=== PATIENT | male | born 1985 | race Caucasian/White ===

== ENCOUNTER 2018-08-20 16:25 | Inpatient (IN) ==
[2018-08-20 17:28] LABS: Basophils % 0.1 %; Eosinophils # 0.3 K/mcL (0.0-0.6); Hematocrit 34.9 % (37.5-50.1); Immature Granulocytes % 2.4 % (0-4); Lymphocytes # 1.1 K/mcL (0.6-4.6); Lymphocytes % 7.8 %; Mean Corpuscular HGB Conc 34.4 g/dL (31.6-35.5); Mean Corpuscular Volume 87.3 fL (83.0-100.0); Mean Platelet Volume 11.6 fL (9.4-12.4); Monocytes # 0.6 K/mcL (0.0-1.3); Neutrophils # 11.9 K/mcL (1.6-8.9); Platelet Count 109 K/mcL (140-400); Red Cell Distribution Width 12.4 % (11.5-14.5); Segmented Neutrophils % 83.7 %
[2018-08-20 17:47] LABS: BUN/Creatinine Ratio 17 (6-26); Blood Urea Nitrogen 16 mg/dL (6-20); Calcium 9.1 mg/dL (8.6-10.3); Carbon Dioxide 28 mEq/L (23-29); Chloride 102 mEq/L (98-107); Glucose 104 mg/dL (70-105); Osmolality,Calculated 279 (280-300); Potassium 3.6 mEq/L (3.5-5.1); Sodium 134 mEq/L (136-145); eGFR For Non-African Americans > 60 (> 60)
[2018-08-20] MEDS ORDERED: Isovue-370 500 ML INFUS..BTL IV ONE (21:05)
[2018-08-20] MEDS ORDERED: cefTRIAXone 1,000 MG in Water for inj. (sterile) 20 ML 10 ML IVP ONE (21:06)
--- NOTE | 2018-08-20 21:11 | Emergency Department Note ---
Disposition Clinical Impression: Left arm cellulitis Disposition: Admitted As Inpatient Condition: Good Referrals: Susi Levine MD [Primary Care Provider] - Forms: ED Satisfaction Letter Time of Disposition: 23:14 Skin/Abscess/FB HPI Chief complaint: ED Skin/Abscess/Foreign Body Stated complaint: Cellulitis left arm 2X Size seen08/18/18 Time Seen by Provider: 08/20/18 20:58 Source: patient Limitations: no limitations Nursing Notes Reviewed: Yes Vital Signs Reviewed: Yes HPI Narrative: 32-year-old male otherwise healthy presents to the emergency department with left arm cellulitis. Patient was seen and evaluated at 4 hours and 30 minutes into his weight. Patient was recently evaluated 2 days ago for similar symptoms discharged home on doxycycline and clindamycin. He was cut by barbed wire. His redness was outlined and it has significantly spread outside the marker demarcation. He reports significant swelling and redness outside of this line. He denies any fevers. Denies any nausea or vomiting. He has been experiencing some headache myalgias. No significant numbness or tingling to the area. No new injuries. He has 3 superficial lacerations to the left upper arm with near circumferential redness. Tetanus was updated on his prior visit. Patient will require admission IV antibiotics and additional imaging to evaluate for possible abscess. He is in agreement with this plan. Pt Subjective Complaint: rash Previous Rx's Medication Instructions Recorded Clindamycin [Cleocin] 150 mg PO BID 7 Days #14 capsule 08/18/18 Doxycycline 100 mg PO BID 7 Days #14 capsule 08/18/18 Ondansetron HCl [Zofran] 4 mg PO Q8HR PRN 7 Days #21 tab 08/18/18 Allergies Allergy/AdvReac Type Severity Reaction Status Date / Time No Known Allergies Allergy Verified 08/18/18 10:32 All systems ED: reviewed and negative except as stated. Review of Systems: As Per HPI Constitutional: Denies: fever, chills ENT ED: Reports: ear pain. Denies: congestion Cardiovascular: Denies: chest pain Respiratory: Denies: cough, dyspnea Gastrointestinal: Denies: abdominal pain, nausea, vomiting Genitourinary: Denies: dysuria Musculoskeletal: Reports: myalgia. Denies: back pain, neck pain Integumentary: Reports: rash Neurological: Reports: headache. Denies: weakness, numbness, paresthesias Past Medical History - Past Medical History Attestation: Yes The following information was validated with the patient. Source: patient Medical history: Reports: no medical history Psychiatric history: Reports: no psych history - Social History Smoking Status: Current some day smoker Smokeless Tobacco Status: No Alcohol use: Reports: none Drug use: Reports: marijuana Physical Exam - General Limitations: no limitations General appearance: alert - Head Head exam: atraumatic, normocephalic, normal inspection - Eye Eye exam: Present: normal appearance, PERRL, EOMI - ENT ENT exam: normal exam, normal oropharynx, mucous membranes moist - Neck Neck exam: Present: normal inspection, full ROM, trachea midline - Chest Chest inspection: Present: normal inspection, symmetric chest wall rise - Respiratory Respiratory exam: Present: normal lung sounds bilaterally - Cardiovascular Cardiovascular exam: Present: regular rate, normal rhythm, normal heart sounds - Expanded Cardiovascular Exam Peripheral pulses: 2+: radial (R), radial (L) - Abdominal Exam Abdominal exam: Present: soft, Non-Tender. Absent: tenderness, distention, guarding, rebound, rigidity - Expanded Upper Extremity Exam Shoulder exam: Present: full ROM, erythema Arm exam: Present: full ROM, erythema Elbow exam: Present: erythema. Absent: full ROM (Some discomfort to the left elbow) Forearm/Wrist exam: Present: full ROM, other (Some swelling but compartment is not tight). Absent: tenderness Hand exam: Present: normal inspection, full ROM Neuromotor exam: Normal: wrist extension, thumb opposition, thumb IP flexion, thumb adduction, fingers 2-5 abduction Neurosensory exam: Normal: radial nerve, ulnar nerve, median nerve Vascular exam: Normal: capillary refill, radial pulse - Neurological Exam Neurological exam: Present: alert, oriented X3 - Psychiatric Psychiatric exam: Present: normal affect, normal mood - Skin Skin exam: Present: warm, erythema. Absent: rash - Expanded Skin Exam Type of lesion: Present: rash Distribution: LUE Description: Present: erythematous, swelling 1 - Erythema 2 - Erythema 3 - Erythema 4 - 3 superficial lacerations Course Course Narrative: Patient presents with worsening cellulitis after outpatient therapy. He denies of any systemic symptoms. Labs or order prior to my evaluation with a leukocytosis that is improved from prior. Lactate 0.7. ESR in CRP mildly dora vated. CT scan showed cellulitis without abscess or gas formation. He remains neurovascularly intact. Patient will be admitted for IV antibiotics vancomycin and ceftriaxone after failing outpatient therapy. - Consultations Consultation #1: Spoke with on-call hospitalist homero Ortiz to admit for left arm cellulitis. No further orders at this time Time: 23:12 Vital Signs Temperature 98.5 F 08/20/18 16:38 Pulse Rate 68 08/20/18 16:38 Respiratory Rate 16 08/20/18 16:38 Blood Pressure 116/74 08/20/18 16:38 O2 Sat by Pulse Oximetry 99 08/20/18 16:38 Temperature 98.5 F 08/20/18 21:02 Pulse Rate 68 08/20/18 21:02 Respiratory Rate 16 08/20/18 21:02 Blood Pressure 116/74 08/20/18 21:02 O2 Sat by Pulse Oximetry 99 08/20/18 21:02 Oxygen Delivery Oxygen Delivery Room Air Skin/Abscess/Foreign Body - MDM Narrative Medical decision making narrative: Patient was discussed with my attending physician who agrees with ED management and final disposition. They independently evaluated the patient. Please refer to their attestation to this encounter for additional information. This note was generated by [employer] voice recognition software and as a result grammatical or spelling errors may occur using this program. - Medical Records Medical records reviewed: Yes I reviewed the patient's medical records. - Lab Data Lab results reviewed: Yes I reviewed the patient's lab results. Result diagrams: 08/20/18 17:06 08/20/18 17:06 Lab Results 08/20/18 08/20/18 08/20/18 Range/Units 17:06 17:06 21:35 WBC 14.2 H (4.3-11.1) K/mcL RBC 4.00 L (4.19-5.50) M/mcL Hgb 12.0 L D (12.9-16.9) g/dL Hct 34.9 L (37.5-50.1) % MCV 87.3 (83.0-100.0) fL MCH 30.0 (28.0-33.3) pg MCHC 34.4 (31.6-35.5) g/dL RDW 12.4 (11.5-14.5) % Plt Count 109 L (140-400) K/mcL MPV 11.6 (9.4-12.4) fL Immature Gran % 2.4 (0-4) % Seg Neutrophils % 83.7 % Lymphocytes % 7.8 % Monocytes % 4.0 % Eosinophils % 2.0 % Basophils % 0.1 % Neutrophils # 11.9 H (1.6-8.9) K/mcL Lymphocytes # 1.1 (0.6-4.6) K/mcL Monocytes # 0.6 (0.0-1.3) K/mcL Eosinophils # 0.3 (0.0-0.6) K/mcL Basophils # 0.0 (0.0-0.2) K/mcL ESR (0-10) mm/hr Sodium 134 L (136-145) mEq/L Potassium 3.6 (3.5-5.1) mEq/L Chloride 102 (98-107) mEq/L Carbon Dioxide 28 (23-29) mEq/L BUN 16 (6-20) mg/dL Creatinine 0.96 (0.70-1.30) mg/dL Est GFR ( Amer) > 60 (> 60) Est GFR (Non-Af Amer) > 60 (> 60) BUN/Creatinine Ratio 17 (6-26) Glucose 104 (70-105) mg/dL Calculated Osmolality 279 L (280-300) Lactic Acid 0.7 (0.5-2.2) mmol/L Calcium 9.1 (8.6-10.3) mg/dL C-Reactive Protein (Less than 10) mg/L 08/20/18 08/20/18 Range/Units 21:35 21:35 WBC (4.3-11.1) K/mcL RBC (4.19-5.50) M/mcL Hgb (12.9-16.9) g/dL Hct (37.5-50.1) % MCV (83.0-100.0) fL MCH (28.0-33.3) pg MCHC (31.6-35.5) g/dL RDW (11.5-14.5) % Plt Count (140-400) K/mcL MPV (9.4-12.4) fL Immature Gran % (0-4) % Seg Neutrophils % % Lymphocytes % % Monocytes % % Eosinophils % % Basophils % % Neutrophils # (1.6-8.9) K/mcL Lymphocytes # (0.6-4.6) K/mcL Monocytes # (0.0-1.3) K/mcL Eosinophils # (0.0-0.6) K/mcL Basophils # (0.0-0.2) K/mcL ESR 65 H (0-10) mm/hr Sodium (136-145) mEq/L Potassium (3.5-5.1) mEq/L Chloride (98-107) mEq/L Carbon Dioxide (23-29) mEq/L BUN (6-20) mg/dL Creatinine (0.70-1.30) mg/dL Est GFR ( Amer) (> 60) Est GFR (Non-Af Amer) (> 60) BUN/Creatinine Ratio (6-26) Glucose (70-105) mg/dL Calculated Osmolality (280-300) Lactic Acid (0.5-2.2) mmol/L Calcium (8.6-10.3) mg/dL C-Reactive Protein 201 H (Less than 10) mg/L - Radiology Data Radiology results reviewed: Yes I reviewed the patient's radiology results. Upper Extremity CT 08/20/18 21:05 IMPRESSION: Findings most compatible with cellulitis. No focal abscess. No soft tissue gas. No CT evidence of osteomyelitis. D/ / Gilberto Espitia MD / Gilberto Espitia MD Interpreting Provider: Gilberto Espitia MD
[2018-08-20] MEDS ORDERED: 0.9 % Sodium Chloride 1,000 ML IVC ONE (21:12)
[2018-08-20] MEDS ORDERED: Ketorolac 15 MG/ML VIAL IVP ONE (22:19)
[2018-08-20] MEDS ORDERED: *HR* FentaNYL (PF) 100 MCG/2 ML VIAL IVP ONE (22:19)
--- NOTE | 2018-08-20 22:50 | Emergency Department Note ---
Disposition Clinical Impression: Left arm cellulitis Disposition: Admitted As Inpatient Condition: Good Referrals: Susi Levine MD [Primary Care Provider] - Forms: ED Satisfaction Letter General Adult HPI - General Chief complaint: ED Skin/Abscess/Foreign Body Stated complaint: Cellulitis left arm 2X Size seen08/18/18 Time Seen by Provider: 08/20/18 20:58 Source: patient Limitations: no limitations Nursing Notes Reviewed: Yes Vital Signs Reviewed: Yes - History of Present Illness Pain Scale: 5 - Related Data Previous Rx's Medication Instructions Recorded Clindamycin [Cleocin] 150 mg PO BID 7 Days #14 capsule 08/18/18 Doxycycline 100 mg PO BID 7 Days #14 capsule 08/18/18 Ondansetron HCl [Zofran] 4 mg PO Q8HR PRN 7 Days #21 tab 08/18/18 Allergies Allergy/AdvReac Type Severity Reaction Status Date / Time No Known Allergies Allergy Verified 08/18/18 10:32 Constitutional: Denies: fever, chills ENT ED: Reports: ear pain. Denies: congestion Cardiovascular: Denies: chest pain Respiratory: Denies: cough, dyspnea Gastrointestinal: Denies: abdominal pain, nausea, vomiting Genitourinary: Denies: dysuria Musculoskeletal: Reports: myalgia. Denies: back pain, neck pain Integumentary: Reports: rash Neurological: Reports: headache. Denies: weakness, numbness, paresthesias Past Medical History - Past Medical History Medical history: Reports: no medical history Psychiatric history: Reports: no psych history - Social History Smoking Status: Current some day smoker Smokeless Tobacco Status: No Alcohol use: Reports: none Drug use: Reports: marijuana Physical Exam - General Limitations: no limitations General appearance: alert Course Vital Signs Temperature 98.5 F 08/20/18 16:38 Pulse Rate 68 08/20/18 16:38 Respiratory Rate 16 08/20/18 16:38 Blood Pressure 116/74 08/20/18 16:38 O2 Sat by Pulse Oximetry 99 08/20/18 16:38 Temperature 98.5 F 08/20/18 21:02 Pulse Rate 68 08/20/18 21:02 Respiratory Rate 16 08/20/18 21:02 Blood Pressure 116/74 08/20/18 21:02 O2 Sat by Pulse Oximetry 99 08/20/18 21:02 Oxygen Delivery Oxygen Delivery Room Air Medical Decision Making - Medical Records Medical records reviewed: Yes I reviewed the patient's medical records. - Lab Data Lab results reviewed: Yes I reviewed the patient's lab results. Result diagrams: 08/20/18 17:06 08/20/18 17:06 Lab Results 08/20/18 08/20/18 08/20/18 Range/Units 17:06 17:06 21:35 WBC 14.2 H (4.3-11.1) K/mcL RBC 4.00 L (4.19-5.50) M/mcL Hgb 12.0 L D (12.9-16.9) g/dL Hct 34.9 L (37.5-50.1) % MCV 87.3 (83.0-100.0) fL MCH 30.0 (28.0-33.3) pg MCHC 34.4 (31.6-35.5) g/dL RDW 12.4 (11.5-14.5) % Plt Count 109 L (140-400) K/mcL MPV 11.6 (9.4-12.4) fL Immature Gran % 2.4 (0-4) % Seg Neutrophils % 83.7 % Lymphocytes % 7.8 % Monocytes % 4.0 % Eosinophils % 2.0 % Basophils % 0.1 % Neutrophils # 11.9 H (1.6-8.9) K/mcL Lymphocytes # 1.1 (0.6-4.6) K/mcL Monocytes # 0.6 (0.0-1.3) K/mcL Eosinophils # 0.3 (0.0-0.6) K/mcL Basophils # 0.0 (0.0-0.2) K/mcL ESR (0-10) mm/hr Sodium 134 L (136-145) mEq/L Potassium 3.6 (3.5-5.1) mEq/L Chloride 102 (98-107) mEq/L Carbon Dioxide 28 (23-29) mEq/L BUN 16 (6-20) mg/dL Creatinine 0.96 (0.70-1.30) mg/dL Est GFR ( Amer) > 60 (> 60) Est GFR (Non-Af Amer) > 60 (> 60) BUN/Creatinine Ratio 17 (6-26) Glucose 104 (70-105) mg/dL Calculated Osmolality 279 L (280-300) Lactic Acid 0.7 (0.5-2.2) mmol/L Calcium 9.1 (8.6-10.3) mg/dL C-Reactive Protein (Less than 10) mg/L 08/20/18 08/20/18 Range/Units 21:35 21:35 WBC (4.3-11.1) K/mcL RBC (4.19-5.50) M/mcL Hgb (12.9-16.9) g/dL Hct (37.5-50.1) % MCV (83.0-100.0) fL MCH (28.0-33.3) pg MCHC (31.6-35.5) g/dL RDW (11.5-14.5) % Plt Count (140-400) K/mcL MPV (9.4-12.4) fL Immature Gran % (0-4) % Seg Neutrophils % % Lymphocytes % % Monocytes % % Eosinophils % % Basophils % % Neutrophils # (1.6-8.9) K/mcL Lymphocytes # (0.6-4.6) K/mcL Monocytes # (0.0-1.3) K/mcL Eosinophils # (0.0-0.6) K/mcL Basophils # (0.0-0.2) K/mcL ESR 65 H (0-10) mm/hr Sodium (136-145) mEq/L Potassium (3.5-5.1) mEq/L Chloride (98-107) mEq/L Carbon Dioxide (23-29) mEq/L BUN (6-20) mg/dL Creatinine (0.70-1.30) mg/dL Est GFR ( Amer) (> 60) Est GFR (Non-Af Amer) (> 60) BUN/Creatinine Ratio (6-26) Glucose (70-105) mg/dL Calculated Osmolality (280-300) Lactic Acid (0.5-2.2) mmol/L Calcium (8.6-10.3) mg/dL C-Reactive Protein 201 H (Less than 10) mg/L - Radiology Data Radiology results reviewed: Yes I reviewed the patient's radiology results. Upper Extremity CT 08/20/18 21:05 IMPRESSION: Findings most compatible with cellulitis. No focal abscess. No soft tissue gas. No CT evidence of osteomyelitis. D/ / Gilberto Espitia MD / Gilberto Espitia MD Interpreting Provider: Gilberto Espitia MD Critical Care Time Critical Care Time: No Attestation Statement - Attestation Attestation: I, Brian Cardoza MD, personally evaluated this patient and discussed their management with the resident physician. I reviewed the resident's note and agree with the documented findings, medical decision making, and plan of care. 32-year-old male presents to the emergency department with a complaint of worsening infection of the left arm. Patient had a puncture wound and some scratches to the left upper arm several days ago caused by a vinson. He was seen here 2 days ago and started on clindamycin and doxycycline for some cellulitis. He returns today because of worsening of the infection. He also complains of some right earache. On examination patient is a well-developed well-nourished male in no acute distress. He is alert and oriented 3. There is no cyanosis or diaphoresis. TMs are clear bilaterally. No injection or exudate. Neck is supple with no lymphadenopathy. There is a large area of cellulitis to the left upper arm extending down below the elbow on the proximal forearm. Labs reviewed. CT of the arm obtained The hospitalist, Dr. Hedrick, was consulted and accepted admission of the patient.
[2018-08-21] MEDS ORDERED: *HR* HYDROcodone/Acet 5/325 mg TABLET PO ONE (02:02)
[2018-08-21] MEDS ORDERED: *HR* HYDROcodone/Acet 5/325 mg TABLET PO PRN (02:47)
[2018-08-21] MEDS ORDERED: Naloxone 0.4 MG/ML INJ IVP PRN (02:47)
[2018-08-21] MEDS: 0.9 % Sodium Chloride w KCl 20 MEQ/1,000 ML MLS IVC SCH ×2 (03:39→17:04)
--- NOTE | 2018-08-21 04:33 | Internal Med History&Physical ---
Date of Encounter: 08/21/18 Time of Encounter: 02:15 Internal Medicine - H&P: HPI Chief complaint: left arm cellulitis; fevers; chills Admitted From: Emergency Dept Plans for Post Hospital Care: Home History of present illness: Mr. Dougherty is a 32 year old male who presents to the ER tonight with complaints of left arm pain, swelling, redness, warmth, and decreased range of motion. He developed cellulitis about 5-6 days ago after sustaining an injury in his left arm from barbed wire fencing. He was working on a fence with his friend and sustained the injury. He was seen initially in the ER and placed on oral antib iotics to cover cellulitis. He was taking the antibiotics as prescribed and followed-up with his PCP yesterday. He was advised to continue antibiotics. However, he then developed worsening swelling, pain, followed by subjective fevers and chills. He therefore came to ER tonight and was noted to have significant cellulitis. CT scan was performed of left upper extremity which was negative other than cellulitis findings. He was subsequently admitted to the hospitalist service after having failed outpatient treatment for cellulitis. Upon my assessment of the patient, he has some mild pain and swelling of his left arm with somewhat limited range of motion. He denies any numbness or loss of sensation in his left hand. He denies any draining lesions from his left arm/hand. He denies any illicit drug use or alcohol use. He did receive his tetanus shot at the first ER visit a few days ago. Past Med Surg Social Fam HX - Past Medical History Attestation: Yes The following information was validated with the patient. Source: patient, obtained from family, other (ER notes) Medical history: no medical history Psychiatric history: no psych history - Past Surgical History Surgical History: other Additional surgical history: tubes in ears - Social History Smoking Status: Never smoker Smokeless Tobacco Status: No Alcohol use: none Drug use: marijuana Current living situation: Home, With Family Activity Level: Independent ambulation, Very active Recent Out of Country Travel Within the Last 8 Weeks: No - Family History Father Living Status: Hx Family Cardiac Disorders: Yes Mother Living Status: Still Living Hx Family Cardiac Disorders: Yes Internal Medicine - H&P: Meds Doxycycline 100 mg PO BID 7 Days #14 capsule 08/18/18 [Rx] Ondansetron HCl [Zofran] 4 mg PO Q8HR PRN 7 Days #21 tab 08/18/18 [Rx] Allergy/AdvReac Type Severity Reaction Status Date / Time No Known Allergies Allergy Verified 08/18/18 10:32 - Constitutional Constitutional: chills, fever(s), no night sweats - EENT Eyes: no blurry vision, no change in vision Ears: no ear pain, no other Nose, mouth and throat: no sore throat - Cardiovascular Cardiovascular ROS IM: no chest pain, no dyspnea - Respiratory Respiratory: no cough, no chest congestion - Gastrointestinal Gastrointestinal: no abdominal pain, no diarrhea, no nausea, no vomiting - Genitourinary Genitourinary ROS male: no dysuria, no flank pain, no hematuria - Musculoskeletal Musculoskeletal ROS IM: limited range of motion, stiffness Additional comments: Left upper arm to left forearm with redness, swelling, warmth, and mild to moderate pain. No abscess appreciated. Scratch bedolla noted on left biceps/triceps area. - Integumentary Integumentary IM: no skin ulcer, no jaundice - Neurological Neurological ROS: no focal weakness, no frequent falls, no numbness, no paresthesias - Psychiatric Psychiatric: no anxiety, no depression - Endocrine Endocrine IM: no polydipsia, no polyphagia, no polyuria - Allergic/Immunologic Allergic/Immunologic: no GI upset with certain foods - Constitutional Vitals: Temp Pulse Resp BP Pulse Ox 98.3 F 61 17 134/83 98 08/21/18 02:54 08/21/18 02:54 08/21/18 02:54 08/21/18 02:54 08/21/18 02:54 General appearance: Present: cooperative, A&O X 3, no acute distress, answers questions appropriately Exam: see below - Head Head exam: Present: normal inspection - Eye Eye exam: Present: EOMI, PERRL. Absent: scleral icterus Pupils: Present: normal accommodation - ENT ENT exam: Present: mucous membranes dry, normal exam, normal oropharynx - Neck Neck exam general surgery: Present: full ROM. Absent: tenderness, nuchal rigidity - Respiratory Respiratory exam: Absent: chest wall tenderness, rales, respiratory distress, rhonchi, wheezes - Cardiovascular Cardiovascular exam: Present: RRR, +S1, +S2. Absent: diastolic murmur, systolic murmur - GI/Abdominal GI/Abdominal exam: Present: normal bowel sounds, soft. Absent: hepatomegaly, splenomegaly, tenderness - Extremities Exam Extremities exam: Present: full ROM, normal capillary refill. Absent: calf tenderness, pedal edema Additional comments: left arm with cellulitis changes along left upper arm to left forearm. - Back Exam Back exam: Present: normal inspection. Absent: CVA tenderness (L), CVA tenderness (R) - Neurological Exam Neurological exam: Present: alert, CN II-XII intact, oriented X3, no focal deficits, strengths equal and symetr throughout - Psychiatric Psychiatric exam: Present: normal affect, normal mood - Skin Skin exam: Present: dry, erythema (left arm), intact, warm Internal Med - H&P Results - Labs CBC & Chem 7: 08/20/18 17:06 08/20/18 17:06 Labs: Short CBC 08/20/18 Range/Units 17:06 WBC 14.2 H (4.3-11.1) K/mcL Hgb 12.0 L D (12.9-16.9) g/dL Hct 34.9 L (37.5-50.1) % Plt Count 109 L (140-400) K/mcL Neutrophils # 11.9 H (1.6-8.9) K/mcL BMP 08/20/18 17:06 Sodium 134 L Potassium 3.6 Chloride 102 Carbon Dioxide 28 BUN 16 Creatinine 0.96 Glucose 104 Calcium 9.1 - Impressions ITS Impressions Upper Extremity CT 08/20/18 21:05 IMPRESSION: Findings most compatible with cellulitis. No focal abscess. No soft tissue gas. No CT evidence of osteomyelitis. D/ / Gilberto Espitia MD / Gilberto Espitia MD Interpreting Provider: Gilberto Espitia MD - Diagnostic Studies Other Images Additional comments: CT LUE report reviewed -- compatible with cellulitis. - Assessment and plan (1) Left arm cellulitis Current Visit: Yes Status: Acute Assessment and plan: 1. S/P failed outpatient treatment. 2. Will place on IV Vancomycin and Zosyn. 3. Monitor clinical response to care. (2) Nausea and vomiting Current Visit: Yes Status: Acute Assessment and plan: 1. Will provide anti-emetics as needed. Qualifiers: Vomiting type: unspecified Vomiting Intractability: unspecified Qualified Code(s): R11.2 - Nausea with vomiting, unspecified (3) DVT prophylaxis Current Visit: Yes Status: Acute Assessment and plan: 1. Heparin SQ.
[2018-08-21] MEDS ORDERED: Ondansetron 4 MG/2 ML VIAL IVP PRN (04:44)
[2018-08-21 05:42] LABS: Monocytes % 9.3 %
[2018-08-21 05:44] LABS: Basophils % 0.2 %; Eosinophils # 0.2 K/mcL (0.0-0.6); Eosinophils % 1.9 %; Hematocrit 34.6 % (37.5-50.1); Hemoglobin 11.6 g/dL (12.9-16.9); Immature Granulocytes % 0.8 % (0-4); Immature Platelets 6.1 % (1.1-6.1); Lymphocytes # 1.4 K/mcL (0.6-4.6); Lymphocytes % 13.3 %; Mean Corpuscular HGB Conc 33.5 g/dL (31.6-35.5); Mean Corpuscular Hemoglobin 30.4 pg (28.0-33.3); Mean Corpuscular Volume 90.6 fL (83.0-100.0); Mean Platelet Volume 11.9 fL (9.4-12.4); Neutrophils # 7.9 K/mcL (1.6-8.9); Red Blood Count 3.82 M/mcL (4.19-5.50); Red Cell Distribution Width 12.6 % (11.5-14.5); Segmented Neutrophils % 74.5 %
[2018-08-21 05:46] LABS: Platelet Count 90 K/mcL (140-400)
[2018-08-21 05:56] LABS: Alanine Aminotransferase 22 Units/L (7-52); Albumin 3.3 g/dL (3.5-5.7); Albumin/Globulin Ratio 1.3 (1.1-2.2); Alkaline Phosphatase 55 Units/L (34-104); Aspartate Amino Transferase 15 Units/L (13-39); BUN/Creatinine Ratio 20 (6-26); Bilirubin,Total 0.4 mg/dL (0.3-1.0); Blood Urea Nitrogen 16 mg/dL (6-20); Calcium 8.7 mg/dL (8.6-10.3); Carbon Dioxide 21 mEq/L (23-29); Chloride 107 mEq/L (98-107); Globulin 2.5 g/dL (2.4-3.5); Glucose 87 mg/dL (70-105); Magnesium 1.7 mg/dL (1.6-2.6); Osmolality,Calculated 281 (280-300); Sodium 135 mEq/L (136-145); Total Protein 5.8 g/dL (6.4-8.9); eGFR For Non-African Americans > 60 (> 60)
[2018-08-21] MEDS: *HR* Heparin 5,000 UNIT/ML VIAL SQ SCH ×2 (06:10→15:46)
[2018-08-21] MEDS: Ibuprofen 400 MG TABLET PO PRN ×3 (09:22→21:52)
[2018-08-21] MEDS: Piperacillin/Tazobactam 3.375 GM in 0.9 % Sodium Chloride Mini Bag 100 ML IVPB SCH ×2 (09:23→15:44)
[2018-08-21] MEDS ORDERED: Ketorolac 15 MG/ML VIAL IVP PRN (11:19)
[2018-08-21] MEDS: Acetaminophen/Butalbital/CaffeineTABLET PO PRN ×2 (12:17→18:22)
--- NOTE | 2018-08-21 13:53 | Event Note ---
Date of Encounter: 08/21/18 Time of Encounter: 13:52 Patient has had slight improvement in cellulitis involving his left upper extremity. However he complains of severe headache along with right earache and pain in the right mastoid region. Continue IV antibiotics to treat cellulitis. Will place him on Fioricet for his headache. Right ear pain likely related to recent upper respiratory tract infection. Pain does not improve, we will consider CT scan of the head and mastoid region to look for any mastoiditis.
[2018-08-22] MEDS: Piperacillin/Tazobactam 3.375 GM in 0.9 % Sodium Chloride Mini Bag 100 ML IVPB SCH ×3 (00:28→17:36)
[2018-08-22] MEDS: *HR* Heparin 5,000 UNIT/ML VIAL SQ SCH ×2 (04:45→17:43)
[2018-08-22 05:52] LABS: Basophils % 0.2 %; Eosinophils # 0.2 K/mcL (0.0-0.6); Hematocrit 33.8 % (37.5-50.1); Hemoglobin 11.5 g/dL (12.9-16.9); Immature Granulocytes % 0.9 % (0-4); Lymphocytes # 1.5 K/mcL (0.6-4.6); Lymphocytes % 15.5 %; Mean Corpuscular Hemoglobin 29.6 pg (28.0-33.3); Mean Corpuscular Volume 87.1 fL (83.0-100.0); Mean Platelet Volume 11.6 fL (9.4-12.4); Monocytes # 1.1 K/mcL (0.0-1.3); Monocytes % 11.6 %; Neutrophils # 6.6 K/mcL (1.6-8.9); Platelet Count 111 K/mcL (140-400); Red Blood Count 3.88 M/mcL (4.19-5.50); Red Cell Distribution Width 12.4 % (11.5-14.5); Segmented Neutrophils % 69.8 %
[2018-08-22 06:45] LABS: BUN/Creatinine Ratio 13 (6-26); Blood Urea Nitrogen 11 mg/dL (6-20); Calcium 8.8 mg/dL (8.6-10.3); Carbon Dioxide 21 mEq/L (23-29); Chloride 106 mEq/L (98-107); Glucose 108 mg/dL (70-105); Osmolality,Calculated 280 (280-300); Potassium 4.1 mEq/L (3.5-5.1); Sodium 135 mEq/L (136-145); eGFR For Non-African Americans > 60 (> 60)
[2018-08-22] MEDS: Acetaminophen/Butalbital/CaffeineTABLET PO PRN ×2 (08:40→17:37)
[2018-08-22] MEDS: Ibuprofen 400 MG TABLET PO PRN ×2 (11:34→20:43)
--- NOTE | 2018-08-22 16:24 | Internal Med Progress Note ---
Hospitalist Progress Note - Encounter Date of Encounter: 08/22/18 Time of Encounter: 11:30 - Subjective Interval History: Patient's headache has significantly improved. He does continue to have right earache without any tinnitus or hearing loss. No fever or chills reported overnight. He has had significant improvement in redness and swelling in his l eft upper extremity. No adverse reaction to antibiotics so far. - Exam Vitals: Temp Pulse Resp BP Pulse Ox 98.8 F 40 16 132/85 99 08/22/18 16:13 08/22/18 16:13 08/22/18 16:13 08/22/18 16:13 08/22/18 16:13 Exam: General: Patient is alert, mild distress, oriented x 3 ENT: Mucous membranes moist, no erythema or swelling over the right ear Respiratory: Good respiratory effort. Normal breath sounds. No wheezing or crackles. Cardiovascular: Regular rate and rhythm. s1 and s2 normal No clicks, rubs, gall ops, or murmurs. No pedal edema Abdomen: Abdomen is soft, nontender. Bowel sounds are present Musculoskeletal: Erythema and swelling in the left upper extremity is improving. Still pretty significant especially just above the left elbow at site of injury. Skin: warm, dry, intact. Neuro: Alert oriented x 3 normal cranial nerves, no focal deficits - Assessment and Plan (1) Left arm cellulitis Current Visit: Yes Status: Acute Assessment and Plan: Improving. Will continue vancomycin and Zosyn for another day. Concern for developing abscess. Will reassess in the morning. (2) Nausea and vomiting Current Visit: Yes Status: Resolved Assessment and Plan: Now resolved. (3) DVT prophylaxis Current Visit: Yes Status: Acute Assessment and Plan: On subcutaneous heparin (4) Right ear pain Current Visit: Yes Status: Acute Assessment and Plan: Could be related to recent episode of upper respiratory infection. CT scan does not show any signs of acute mastoiditis or inner ear infection. Patient is al ready on antibiotics. - Time Spent with Patient Total time spent is greater than 50% in coordination of care (as documented) at patient's floor/unit and/or counseling patient: Internal Medicine: Result - Labs CBC & Chem 7: 08/22/18 05:15 08/22/18 05:15 Labs: Short CBC 08/22/18 Range/Units 05:15 WBC 9.4 (4.3-11.1) K/mcL Hgb 11.5 L (12.9-16.9) g/dL Hct 33.8 L (37.5-50.1) % Plt Count 111 L (140-400) K/mcL Neutrophils # 6.6 (1.6-8.9) K/mcL BMP 08/22/18 05:15 Sodium 135 L Potassium 4.1 Chloride 106 Carbon Dioxide 21 L BUN 11 Creatinine 0.83 Glucose 108 H Calcium 8.8 - Impressions Impressions Internal Auditory Canal CT 08/22/18 08:44 IMPRESSION: Unremarkable right temporal bone High-riding left jugular bulb which can result in tinnitus D/ / Nestor Menendez MD / Nestor Menendez MD Interpreting Provider: Nestor Menendez MD Head CT 08/22/18 08:46 IMPRESSION: No acute intracranial abnormality. D/ / 08/22/2018 10:11:02 Rashmi Levine MD / Mary Jane Yo Interpreting Provider: Rashmi Levine MD Consult Discharge Plan - Plan Referrals: Susi Levine MD [Primary Care Provider] - (2) Nausea and vomiting Qualifiers: Vomiting type: unspecified Vomiting Intractability: unspecified Qualified Code(s): R11.2 - Nausea with vomiting, unspecified
[2018-08-23] MEDS: Piperacillin/Tazobactam 3.375 GM in 0.9 % Sodium Chloride Mini Bag 100 ML IVPB SCH ×2 (00:09→08:24)
[2018-08-23] MEDS: Acetaminophen/Butalbital/CaffeineTABLET PO PRN ×2 (00:10→08:23)
[2018-08-23] MEDS: Ibuprofen 400 MG TABLET PO PRN (04:40)
[2018-08-23] MEDS: *HR* Heparin 5,000 UNIT/ML VIAL SQ SCH (04:40)
--- NOTE | 2018-08-23 11:29 | Discharge Summary ---
- NOTES TO OUTPATIENT PROVIDER Notes to Outpatient Provider: Patient hospitalized here for cellulitis involving his left upper extremity following traumatic injury. He was treated with IV antibiotics with improvement in his symptoms most of the redness and swelling has subsided. He is stable to be discharged home today on oral antibiotics. Patient does complain of a headache and right ear pain. This is also improved now. CT scan of the head and internal auditory canals/master did not show any signs of acute infection. Patient will follow-up with his primary care provider next week. Orders not resulted at time of discharge: Pending orders 08/20/18 21:35 Culture,Blood [BC] Stat 08/24/18 08:00 Vancomycin,Trough Timed Date of Encounter: 08/23/18 Time of Encounter: 10:00 - Discharge Diagnosis (1) Left arm cellulitis Priority: Primary Status: Acute (2) Nausea and vomiting Priority: Secondary Status: Resolved Qualifiers: Vomiting type: unspecified Vomiting Intractability: unspecified Qualified Code(s): R11.2 - Nausea with vomiting, unspecified (3) DVT prophylaxis Priority: Secondary Status: Acute (4) Right ear pain Priority: Secondary Status: Resolved Hospital course: Mr. Dougherty is a 32 year old male Patient with no significant past medical history hospitalized here for cellulitis involving his left upper extremity following traumatic injury with a barbed wire. He been seen in the ER and given tetanus shot and oral antibiotics but his symptoms do not improve. As such he was admitted here and treated with IV antibiotics with improvement in his symptoms most of the redness and swelling has subsided. He is stable to be discharged home today on oral antibiotics. Patient does complain of a headache and right ear pain. This is also improved now. CT scan of the head and internal auditory canals/master did not show any signs of acute infection. Patient will follow- up with his primary care provider next week. Discharge discussed with: patient, nurse - Time Spent with Patient Total time spent providing and/or coordinating discharge services: Less than 30 minutes (25 min) - Discharge Medications Prescriptions: Sulfamethoxazole/Trimeth DS [Bactrim DS] 1 each PO BID #14 tablet Home Medications: Ondansetron HCl [Zofran] 4 mg PO Q8HR PRN 7 Days #21 tab 08/18/18 [Rx] Sulfamethoxazole/Trimeth DS [Bactrim DS] 1 each PO BID #14 tablet 08/23/18 [Rx] Allergies/Adverse Reactions: Allergy/AdvReac Type Severity Reaction Status Date / Time No Known Allergies Allergy Verified 08/18/18 10:32 Date of admission: 08/21/18 02:47 Primary care physician: Susi Levine MD Discharging clinician: Manolo Peralta Anticipated date of discharge: 08/23/18 - Constitutional Vitals: Temp Pulse Resp BP Pulse Ox 98.2 F 53 16 131/77 99 08/23/18 07:32 08/23/18 07:32 08/23/18 07:32 08/23/18 07:32 08/23/18 07:32 General appearance: Present: cooperative, A&O X 3, no acute distress, answers questions appropriately Exam: . - Respiratory Respiratory exam: Present: CTAB. Absent: accessory muscle use, rales, rhonchi, wheezes - GI/Abdominal GI/Abdominal exam: Present: normal bowel sounds, soft, no peritoneal signs. Absent: distended, tenderness - Extremities Exam Extremities exam: Present: warm, radial pulses palpable and symmetrical. Absent: calf tenderness, cyanotic, pedal edema Additional comments: Erythema and swelling over his left upper extremity has mostly subsided. No signs of abscess. Patient has good movement at the shoulder, elbow and finger joints. - Patient Status Disposition: Home, Self-Care Condition: Good Functional capacity at discharge: independent ambulation Overall status at discharge: patient is progressing back to baseline - Discharge Instructions Instructions: Cellulitis (DC) Follow Up With: Susi Levine MD [Primary Care Provider] - 09/02/18 10:00 am (Please follow- up as scheduled) - Diet and Activity Activity: increase activity as tolerated Diet: low fat, low cholesterol, low salt diet
[2018-08-23 11:46] VITALS: BP 125/77
[2018-08-23] MEDS ORDERED: Aminoglycoside Consult 1 EACH MC ONE (12:39)
== END 2018-08-23 12:40 | disposition home or self-care (01) | DRG 383 ==
LOC: EMEROOARM 16:25 → 2ANU 16:25 → SUATTDRO 08-21 02:47
PROVIDERS: ADMIT Family Medicine; ATTEND Internal Medicine